=== PATIENT | male | born 2005 | race Caucasian/White ===

== ENCOUNTER 2023-01-23 22:49 | Inpatient (IN) | payer OTHER ==
[~2023-01-23 22:49] MED LIST: Iopamidol 370 76% 100 ML VIAL ONE
[2023-01-23] MEDS ORDERED: fentaNYL 50 mcg/mL 1 mL Vial ONE (22:54)
[2023-01-23 23:00] LABS: #Basophils 0.1 thou/uL (0.0-0.2); #Monocytes 0.8 thou/uL (0.11-0.59); #Neutrophils 11.4 thou/uL (1.40-6.50); %Basophils 0.5 % (0.0-1.0); %Eosinophils 0.2 % (0.0-10.0); %Lymphocytes 18.3 % (21.0-51.0); %Monocytes 5.2 % (0.0-10.0); Hematocrit 49.7 % (42.0-52.0); Hemoglobin 16.7 g/dL (14.0-18.0); Mean Corpuscular HGB CONC 33.6 g/dL (32.0-36.0); Mean Corpuscular Volume 86.3 fl (78.0-98.0); Mean Platelet Volume 9.6 fL (7.4-10.4); Platelet Count 353 10x3/uL (130-400); RBC Distribution Width 11.8 % (11.5-14.5); Red Blood Cell (RBC) Count 5.76 mill/uL (4.70-6.10); White Blood Cell (WBC) Count 16.1 10x3/uL (4.8-10.8)
[2023-01-23] MEDS ORDERED: Lidocaine 1% MPF 2 ML VIAL ONE (23:01)
[2023-01-23] MEDS ORDERED: Ketamine 50 MG/ML (10ML VIAL) ONE (23:03)
[2023-01-23] MEDS ORDERED: CEFAZOLIN 2 GM VIAL ONE (23:08)
[2023-01-23] MEDS ORDERED: Boostrix 0.5 ML (Tdap) VIAL (>/=7 yrs of age) ONE (23:08)
[2023-01-23 23:15] LABS: INR-International Normal Ratio 1.3; PTT 37.6 sec (22.9-36.1); Prothrombin Time 16.5 sec (12.0-14.7)
[2023-01-23] MEDS ORDERED: TETANUS, DIPHTHERIA TOX,ADULT (TDVAX) 0.5 ML VIAL IM ONE (23:22)
[2023-01-23] MEDS ORDERED: Ipratropium/Albuterol 3 ML NEB NEB PRN (23:22)
[2023-01-23] MEDS ORDERED: Cyclobenzaprine 10 MG TAB PO PRN (23:25)
[2023-01-23] MEDS ORDERED: Ketorolac Tromethamine 30 MG/ML VIAL ONE (23:39)
[2023-01-23 23:45] LABS: ALT (SGPT) 109 U/L (8-55); AST (SGOT) 184 U/L (5-34); Albumin 4.6 g/dL (3.5-5.0); Alkaline Phosphatase 67 U/L (40-110); Anion Gap 18 mmol/L (10-20); BUN (Urea Nitrogen) 15 mg/dL (8.9-20.6); Bilirubin, Total 0.3 mg/dL (0.2-1.2); Calc. Creatinine Clearance 0 mL/min (70-130); Calcium 9.3 mg/dL (7.8-10.44); Carbon Dioxide 19 mmol/L (22-29); Chloride 105 mmol/L (98-107); Estimated GFR 87; Globulin 2.9 g/dL (2.4-3.5); Glucose 98 mg/dL (70-105); Potassium 3.9 mmol/L (3.5-5.1); Protein, Total 7.5 g/dL (6.0-8.3); Sodium 138 mmol/L (136-145)
[2023-01-23 23:48] LABS: Troponin I 0.082 ng/mL (< 0.028)
[2023-01-23 23:57] LABS: Actual Bicarbonate (HCO3v) 20.7 mEq/L (22-28); Base Excess -4.6 mEq/L (-2.0 to +3.0); Calcium, Ionized (venous) 1.11 mmol/L (1.16-1.32); Chloride (VBG) 103 mmol/L (98-106); Hematocrit-VBG 50 % (42.0-52.0); Hemoglobin (Hb) 16.9 g/dL (13.2-17.3); Potassium (VBG) 3.73 mmol/L (3.70-5.30); Sodium 141.2 mmol/L (133-146); pH (venous) 7.338 (7.32-7.43)
[2023-01-24 00:27] LABS: Lipase 53 U/L (8-78)
[2023-01-24] MEDS ORDERED: Ondansetron PF 4 MG/2 ML Vial ONE (01:01)
[2023-01-24 01:54] LABS: Lactic Acid 2.9 mmol/L (0.5-2.2)
[2023-01-24] MEDS: Acetaminophen 500 MG TAB PO SCH ×5 (02:28→23:23)
[2023-01-24] MEDS: traMADol HCl 50 MG TAB PO SCH ×5 (02:28→23:22)
[2023-01-24] MEDS: Sodium Chloride 0.9% 1,000 ML IV SCH ×5 (02:45→23:24)
[2023-01-24 03:11] VITALS: BMI 27.2
[2023-01-24] MEDS: Morphine 2 MG/ML VIAL SLOW IVP PRN ×4 (03:50→23:34)
[2023-01-24 05:56] LABS: #Monocytes 1.3 thou/uL (0.11-0.59); #Neutrophils 14.6 thou/uL (1.40-6.50); %Basophils 0.1 % (0.0-1.0); %Lymphocytes 3.1 % (28.0-48.0); %Monocytes 7.9 % (0.0-4.0); %Neutrophils 88.4 % (31.0-61.0); Hemoglobin 14.5 g/dL (14.0-18.0); Mean Corpuscular HGB CONC 33.7 g/dL (32.0-36.0); Mean Corpuscular Hemoglobin 29.6 pg (25.0-35.0); Mean Corpuscular Volume 87.8 fl (78.0-98.0); Platelet Count 269 10x3/uL (130-400); RBC Distribution Width 11.9 % (11.5-14.5); White Blood Cell (WBC) Count 16.5 10x3/uL (4.8-10.8)
[2023-01-24 06:08] LABS: INR-International Normal Ratio 1.2; PTT 28.1 sec (22.9-36.1); Prothrombin Time 15.8 sec (12.0-14.7)
[2023-01-24 06:30] LABS: Anion Gap 16 mmol/L (10-20); BUN (Urea Nitrogen) 15 mg/dL (8.9-20.6); Calc. Creatinine Clearance 142 mL/min (70-130); Calcium 8.8 mg/dL (7.8-10.44); Carbon Dioxide 20 mmol/L (22-29); Chloride 107 mmol/L (98-107); Estimated GFR 105; Glucose 133 mg/dL (70-105); Potassium 4.3 mmol/L (3.5-5.1); Sodium 139 mmol/L (136-145)
[2023-01-24 06:57] LABS: Amphetamine Not Detected (NotDetected); Barbiturates Screen Not Detected (NotDetected); Benzodiazepine Screen Not Detected (NotDetected); Cocaine Metabolite Screen Not Detected (NotDetected); Methadone Not Detected (NotDetected); Methamphetamine Not Detected (NotDetected); Opiate Screen Detected (NotDetected); Oxycodone Screen Not Detected (NotDetected); Phencyclidine (PCP) Not Detected (NotDetected); THC/Cannabinoid Screen Detected (NotDetected); Tricyclic Screen Not Detected (NotDetected)
[2023-01-24] MEDS ORDERED: CEFAZOLIN 2 GM in Sodium Chloride 0.9% 100 ML IVPB SCH (08:30)
[2023-01-24] MEDS: Polyethylene Glycol 3350 17 GM Packet PO SCH (09:50)
[2023-01-24] MEDS: Senokot S 8.6-50 MG TAB PO SCH ×2 (09:50→20:07)
[2023-01-24] MEDS: Famotidine/PF 20 mg/2ml Vial SLOW IVP SCH ×2 (09:50→20:07)
[2023-01-24 10:47] LABS: Bacteria/HPF None Seen HPF (None Seen); Bilirubin Negative (Negative); Blood, Urine 3+ (Negative); CAUTI Indications for Culture Acute Hematuria; Clarity Clear (Clear); Glucose, Urine (Dipstick) 30 mg/dL (Negative); Ketone, Urine Negative (Negative); Leukocyte Negative Leu/uL (Negative); Nitrite Negative (Negative); Protein, Urine (Dipstick) 20 mg/dL (Neg-Trace); RBC/HPF Greater than 50 HPF (0-3); Specific Gravity, Urine 1.048 (1.002-1.036); Squamous Epithelial 0-3 HPF (0-3); Urobilinogen Normal mg/dL (Less than 2); WBC/HPF 0-3 HPF (0-3); pH, Urine 5.5 (5.0-9.0)
[2023-01-24 10:49] LABS: Urine Culture Reflex No No
[2023-01-24] MEDS: traMADol HCl 50 MG TAB PO PRN (15:51)
[2023-01-24] MEDS: Ondansetron PF 4 MG/2 ML Vial IVP PRN (15:52)
[2023-01-24] MEDS: Pregabalin 50 MG CAP PO SCH (20:07)
[2023-01-25] MEDS: traMADol HCl 50 MG TAB PO SCH ×4 (04:32→23:15)
[2023-01-25] MEDS: Morphine 2 MG/ML VIAL SLOW IVP PRN ×3 (04:33→22:57)
[2023-01-25] MEDS: Acetaminophen 500 MG TAB PO SCH ×4 (04:33→22:49)
[2023-01-25] MEDS: Sodium Chloride 0.9% 1,000 ML IV SCH ×2 (06:28→15:29)
[2023-01-25] MEDS ORDERED: fentaNYL 50 mcg/mL 1 mL Vial ONE ×5 (06:56→11:16)
[2023-01-25] MEDS ORDERED: HYDROmorphone 2 MG/ML VIAL ONE (06:56)
[2023-01-25] MEDS ORDERED: Midazolam HCl 2 mg/2 ml Vial ONE (06:56)
[2023-01-25 06:59] LABS: #Basophils 0.1 thou/uL (0.0-0.2); #Eosinphils 0.3 thou/uL (0.0-0.7); #Monocytes 0.7 thou/uL (0.11-0.59); #Neutrophils 6.9 thou/uL (1.40-6.50); %Basophils 0.7 % (0.0-1.0); %Eosinophils 2.9 % (0.0-10.0); %Monocytes 8.1 % (0.0-4.0); %Neutrophils 77.1 % (31.0-61.0); Mean Corpuscular HGB CONC 33.8 g/dL (32.0-36.0); Mean Corpuscular Hemoglobin 29.2 pg (25.0-35.0); Mean Corpuscular Volume 86.4 fl (78.0-98.0); Mean Platelet Volume 9.4 fL (7.4-10.4); Platelet Count 148 10x3/uL (130-400)
[2023-01-25 07:26] LABS: Anion Gap 10 mmol/L (10-20); BUN (Urea Nitrogen) 11 mg/dL (8.9-20.6); CK (CPK) 2529 U/L (30-200); Calc. Creatinine Clearance 164 mL/min (70-130); Calcium 8.3 mg/dL (7.8-10.44); Carbon Dioxide 23 mmol/L (22-29); Chloride 108 mmol/L (98-107); Estimated GFR 125; Glucose 100 mg/dL (70-105); Magnesium 1.5 mg/dL (1.7-2.2); Phosphorus 2.5 mg/dL (2.3-4.7); Potassium 3.8 mmol/L (3.5-5.1); Sodium 137 mmol/L (136-145)
[2023-01-25 07:40] LABS: Hematocrit 31.1 % (42.0-52.0); Hemoglobin 10.5 g/dL (14.0-18.0)
[2023-01-25] MEDS ORDERED: CEFAZOLIN 2 GM VIAL ONE (07:41)
[2023-01-25] MEDS ORDERED: Sodium Chloride 0.9% 100 ML ONE (07:41)
[2023-01-25] MEDS ORDERED: Rocuronium Bromide 10 MG/ML (10ML VIAL) ONE (08:05)
[2023-01-25] MEDS ORDERED: Dexamethasone 20 MG/5 ML VIAL ONE (08:05)
[2023-01-25] MEDS ORDERED: PROPOFOL 200 MG/20 ML VIAL ONE (08:05)
[2023-01-25] MEDS ORDERED: Lidocaine 1% PF 5 ML VIAL ONE (08:05)
[2023-01-25] MEDS ORDERED: Ondansetron PF 4 MG/2 ML Vial ONE (08:05)
[2023-01-25] MEDS ORDERED: Dexmedetomidine 200 MCG/2 ML VIAL ONE (08:07)
[2023-01-25] MEDS ORDERED: Famotidine/PF 20 mg/2ml Vial ONE (08:07)
[2023-01-25] MEDS ORDERED: SUGAMMADEX SODIUM 200 MG/2 ML VIAL ONE (08:07)
[2023-01-25] MEDS ORDERED: Albumin 5% 500 ML ONE (08:07)
[2023-01-25] MEDS: Senokot S 8.6-50 MG TAB PO SCH ×2 (10:27→20:38)
[2023-01-25] MEDS: Polyethylene Glycol 3350 17 GM Packet PO SCH (10:27)
[2023-01-25] MEDS: Pregabalin 50 MG CAP PO SCH ×2 (10:27→20:38)
[2023-01-25] MEDS: Famotidine/PF 20 mg/2ml Vial SLOW IVP SCH ×2 (10:27→20:39)
[2023-01-25] MEDS ORDERED: Ondansetron HCl/PF 4 MG/2 ML Vial IVP PRN (10:36)
[2023-01-25] MEDS ORDERED: HYDROmorphone 2 MG/ML VIAL SLOW IVP PRN (10:36)
[2023-01-25] MEDS ORDERED: Ketorolac Tromethamine 30 MG/ML VIAL IVP PRN (10:36)
[2023-01-25] MEDS ORDERED: Promethazine HCl 25 MG/ML VIAL IM PRN (10:36)
[2023-01-25] MEDS ORDERED: Ketorolac Tromethamine 30 MG/ML VIAL ONE (10:40)
[2023-01-25] MEDS ORDERED: Magnesium Sulfate In Water 4 GM in Premix Bag 1 BAG IVPB SCH (13:00)
[2023-01-25] MEDS: CEFAZOLIN 2 GM in Sodium Chloride 0.9% 100 ML IVPB SCH ×2 (13:36→22:49)
[2023-01-25] MEDS: Ondansetron PF 4 MG/2 ML Vial IVP PRN (13:37)
[2023-01-25] MEDS: Cyclobenzaprine 10 MG TAB PO PRN ×2 (14:12→20:38)
[2023-01-25] MEDS: Ferrous Sulfate 325 MG TAB PO SCH (17:39)
[2023-01-25] MEDS: Ascorbic Acid 500 mg Chewable Tablet PO SCH (20:39)
[2023-01-25] MEDS: traMADol HCl 50 MG TAB PO PRN (20:39)
[2023-01-26] MEDS: traMADol HCl 50 MG TAB PO PRN ×2 (03:06→09:05)
[2023-01-26] MEDS: Morphine 2 MG/ML VIAL SLOW IVP PRN ×4 (03:06→15:17)
[2023-01-26] MEDS: Acetaminophen 500 MG TAB PO SCH ×4 (05:14→23:03)
[2023-01-26] MEDS: traMADol HCl 50 MG TAB PO SCH ×4 (05:15→23:04)
[2023-01-26 07:01] LABS: #Eosinphils 0.1 thou/uL (0.0-0.7); #Neutrophils 10.4 thou/uL (1.40-6.50); %Basophils 0.2 % (0.0-1.0); %Eosinophils 0.6 % (0.0-10.0); %Lymphocytes 6.3 % (28.0-48.0); %Monocytes 8.1 % (0.0-4.0); %Neutrophils 84.2 % (31.0-61.0); Hematocrit 27.6 % (42.0-52.0); Hemoglobin 9.4 g/dL (14.0-18.0); Mean Corpuscular HGB CONC 34.1 g/dL (32.0-36.0); Mean Corpuscular Hemoglobin 29.7 pg (25.0-35.0); Mean Corpuscular Volume 87.3 fl (78.0-98.0); Mean Platelet Volume 10.3 fL (7.4-10.4); Platelet Count 179 10x3/uL (130-400); RBC Distribution Width 11.9 % (11.5-14.5); Red Blood Cell (RBC) Count 3.16 mill/uL (4.00-5.20); White Blood Cell (WBC) Count 12.4 10x3/uL (4.8-10.8)
[2023-01-26] MEDS: CEFAZOLIN 2 GM in Sodium Chloride 0.9% 100 ML IVPB SCH (09:01)
[2023-01-26] MEDS: Pregabalin 50 MG CAP PO SCH (09:03)
[2023-01-26] MEDS: Ferrous Sulfate 325 MG TAB PO SCH ×2 (09:03→17:52)
[2023-01-26] MEDS: Ascorbic Acid 500 mg Chewable Tablet PO SCH ×2 (09:03→21:57)
[2023-01-26] MEDS: Famotidine/PF 20 mg/2ml Vial SLOW IVP SCH ×2 (09:03→22:02)
[2023-01-26] MEDS: Polyethylene Glycol 3350 17 GM Packet PO SCH (09:05)
[2023-01-26] MEDS: Senokot S 8.6-50 MG TAB PO SCH ×2 (09:05→21:58)
[2023-01-26] MEDS: Cyclobenzaprine 10 MG TAB PO PRN (15:17)
[2023-01-26] MEDS: Pregabalin 75 MG CAP PO SCH (21:58)
[2023-01-27] MEDS: traMADol HCl 50 MG TAB PO SCH ×4 (04:35→22:40)
[2023-01-27] MEDS: Acetaminophen 500 MG TAB PO SCH ×4 (04:36→22:40)
[2023-01-27] MEDS: Morphine 2 MG/ML VIAL SLOW IVP PRN ×2 (05:24→09:01)
[2023-01-27 06:26] LABS: #Basophils 0.1 thou/uL (0.0-0.2); #Eosinphils 0.4 thou/uL (0.0-0.7); #Monocytes 0.7 thou/uL (0.11-0.59); #Neutrophils 5.4 thou/uL (1.40-6.50); %Basophils 0.6 % (0.0-1.0); %Eosinophils 4.7 % (0.0-10.0); %Lymphocytes 20.4 % (28.0-48.0); %Monocytes 8.6 % (0.0-4.0); %Neutrophils 65.1 % (31.0-61.0); Hematocrit 24.9 % (42.0-52.0); Hemoglobin 8.3 g/dL (14.0-18.0); Mean Corpuscular HGB CONC 33.3 g/dL (32.0-36.0); Mean Corpuscular Hemoglobin 29.3 pg (25.0-35.0); Mean Platelet Volume 9.8 fL (7.4-10.4); Platelet Count 177 10x3/uL (130-400); Red Blood Cell (RBC) Count 2.83 mill/uL (4.00-5.20); White Blood Cell (WBC) Count 8.3 10x3/uL (4.8-10.8)
[2023-01-27 06:55] LABS: Anion Gap 13 mmol/L (10-20); BUN (Urea Nitrogen) 13 mg/dL (8.9-20.6); CK (CPK) 1576 U/L (30-200); Calc. Creatinine Clearance 168 mL/min (70-130); Calcium 8.7 mg/dL (7.8-10.44); Carbon Dioxide 27 mmol/L (22-29); Chloride 104 mmol/L (98-107); Estimated GFR 126; Glucose 97 mg/dL (70-105); Potassium 3.5 mmol/L (3.5-5.1); Sodium 140 mmol/L (136-145)
[2023-01-27] MEDS: Ferrous Sulfate 325 MG TAB PO SCH ×2 (08:52→17:34)
[2023-01-27] MEDS: Pregabalin 75 MG CAP PO SCH ×2 (08:52→20:52)
[2023-01-27] MEDS: Senokot S 8.6-50 MG TAB PO SCH ×2 (08:53→20:51)
[2023-01-27] MEDS: Polyethylene Glycol 3350 17 GM Packet PO SCH (08:54)
[2023-01-27] MEDS: Ascorbic Acid 500 mg Chewable Tablet PO SCH ×2 (08:54→20:51)
[2023-01-27] MEDS: Famotidine/PF 20 mg/2ml Vial SLOW IVP SCH (08:54)
[2023-01-27] MEDS: Cyclobenzaprine 10 MG TAB PO PRN (09:01)
[2023-01-27 09:44] LABS: Magnesium 1.7 mg/dL (1.7-2.2)
[2023-01-27] MEDS: Ondansetron PF 4 MG/2 ML Vial IVP PRN (17:34)
[2023-01-28] MEDS: Acetaminophen 500 MG TAB PO SCH ×4 (05:41→23:28)
[2023-01-28] MEDS: traMADol HCl 50 MG TAB PO SCH ×4 (05:41→20:51)
[2023-01-28] MEDS: Ascorbic Acid 500 mg Chewable Tablet PO SCH ×2 (08:56→20:50)
[2023-01-28] MEDS: Ferrous Sulfate 325 MG TAB PO SCH ×2 (08:58→17:17)
[2023-01-28] MEDS: Pregabalin 75 MG CAP PO SCH ×2 (09:00→20:50)
[2023-01-28] MEDS: Senokot S 8.6-50 MG TAB PO SCH ×2 (09:00→20:50)
[2023-01-28] MEDS: Polyethylene Glycol 3350 17 GM Packet PO SCH (09:08)
[2023-01-28] MEDS: Cyclobenzaprine 10 MG TAB PO PRN (17:17)
[2023-01-29] MEDS: Melatonin 3 MG TAB PO PRN ×2 (01:49→22:28)
[2023-01-29] MEDS: Cyclobenzaprine 10 MG TAB PO PRN ×2 (01:49→20:46)
[2023-01-29] MEDS: Acetaminophen 500 MG TAB PO SCH ×3 (04:23→17:42)
[2023-01-29] MEDS: traMADol HCl 50 MG TAB PO SCH ×4 (04:23→22:28)
[2023-01-29] MEDS: Pregabalin 75 MG CAP PO SCH ×2 (08:59→20:47)
[2023-01-29] MEDS: Ascorbic Acid 500 mg Chewable Tablet PO SCH ×2 (08:59→20:47)
[2023-01-29] MEDS: Ferrous Sulfate 325 MG TAB PO SCH ×2 (08:59→17:43)
[2023-01-29] MEDS: Polyethylene Glycol 3350 17 GM Packet PO SCH (08:59)
[2023-01-29] MEDS: Senokot S 8.6-50 MG TAB PO SCH ×2 (09:05→20:45)
[2023-01-29] MEDS ORDERED: Bacitracin Zinc Ointment 30 gm TUBE TOP PRN (12:03)
[2023-01-29] MEDS ORDERED: Ketorolac Tromethamine 30 MG/ML VIAL IVP SCH (19:00)
[2023-01-29] MEDS ORDERED: Gabapentin 300 MG CAP PO SCH (19:00)
[2023-01-30] MEDS: Acetaminophen 500 MG TAB PO SCH ×5 (00:28→23:05)
[2023-01-30] MEDS: Ketorolac Tromethamine 30 MG/ML VIAL IVP SCH ×5 (00:28→23:05)
[2023-01-30] MEDS: traMADol HCl 50 MG TAB PO SCH ×4 (05:14→23:04)
[2023-01-30 05:46] LABS: #Eosinphils 0.2 thou/uL (0.0-0.7); #Neutrophils 5.9 thou/uL (1.40-6.50); %Basophils 0.4 % (0.0-1.0); %Eosinophils 2.7 % (0.0-10.0); %Lymphocytes 12.8 % (28.0-48.0); %Monocytes 12.6 % (0.0-4.0); %Neutrophils 70.7 % (31.0-61.0); Hematocrit 29.7 % (42.0-52.0); Hemoglobin 9.9 g/dL (14.0-18.0); Mean Corpuscular HGB CONC 33.3 g/dL (32.0-36.0); Mean Corpuscular Hemoglobin 28.9 pg (25.0-35.0); Mean Corpuscular Volume 86.8 fl (78.0-98.0); Mean Platelet Volume 9.3 fL (7.4-10.4); Platelet Count 273 10x3/uL (130-400); RBC Distribution Width 12.2 % (11.5-14.5); Red Blood Cell (RBC) Count 3.42 mill/uL (4.00-5.20); White Blood Cell (WBC) Count 8.3 10x3/uL (4.8-10.8)
[2023-01-30 06:12] LABS: Anion Gap 16 mmol/L (10-20); BUN (Urea Nitrogen) 14 mg/dL (8.9-20.6); Calc. Creatinine Clearance 178 mL/min (70-130); Calcium 9.5 mg/dL (7.8-10.44); Carbon Dioxide 24 mmol/L (22-29); Chloride 99 mmol/L (98-107); Estimated GFR 129; Glucose 103 mg/dL (70-105); Potassium 4.2 mmol/L (3.5-5.1); Sodium 135 mmol/L (136-145)
[2023-01-30] MEDS: Pregabalin 75 MG CAP PO SCH ×2 (11:47→21:01)
[2023-01-30] MEDS: Ascorbic Acid 500 mg Chewable Tablet PO SCH ×2 (11:47→21:01)
[2023-01-30] MEDS: Ferrous Sulfate 325 MG TAB PO SCH ×2 (11:48→16:25)
[2023-01-30] MEDS: Polyethylene Glycol 3350 17 GM Packet PO SCH (14:03)
[2023-01-30] MEDS: Senokot S 8.6-50 MG TAB PO SCH ×2 (14:03→21:02)
[2023-01-30] MEDS: Melatonin 3 MG TAB PO PRN (23:06)
[2023-01-31] MEDS: Acetaminophen 500 MG TAB PO SCH ×2 (05:15→13:10)
[2023-01-31] MEDS: traMADol HCl 50 MG TAB PO SCH ×3 (05:16→15:17)
[2023-01-31] MEDS: Ketorolac Tromethamine 30 MG/ML VIAL IVP SCH ×2 (05:24→11:38)
[2023-01-31] MEDS: Ascorbic Acid 500 mg Chewable Tablet PO SCH (09:55)
[2023-01-31] MEDS: Ferrous Sulfate 325 MG TAB PO SCH (09:55)
[2023-01-31] MEDS: Pregabalin 75 MG CAP PO SCH (09:55)
[2023-01-31] MEDS: Senokot S 8.6-50 MG TAB PO SCH (09:55)
[2023-01-31] MEDS: Polyethylene Glycol 3350 17 GM Packet PO SCH (09:56)
[2023-01-31 12:42] VITALS: BP 128/78; TEMP 97.9
== END 2023-01-31 17:09 | DRG 958 ==
LOC: EDBD 22:49 → ERS 22:49 → SJJU 23:25
PROVIDERS: ADMIT Surgery; ATTEND Surgery
PROC: 0W9930Z Drainage of Right Pleural Cavity with Drainage Device, Percutaneous Approach (ICD-10-PCS; principal; 2023-01-23)
PROC: 0QS204Z Reposition Right Pelvic Bone with Internal Fixation Device, Open Approach (ICD-10-PCS; 2023-01-25)
PROC: 30233J1 Transfusion of Nonautologous Serum Albumin into Peripheral Vein, Percutaneous Approach (ICD-10-PCS; 2023-01-25)
DX: S32.810A Multiple fractures of pelvis with stable disruption of pelvic ring, initial encounter for closed fracture (principal); S27.2XXA Traumatic hemopneumothorax, initial encounter; D62 Acute posthemorrhagic anemia; S36.031A Moderate laceration of spleen, initial encounter; S32.018A Other fracture of first lumbar vertebra, initial encounter for closed fracture; S32.028A Other fracture of second lumbar vertebra, initial encounter for closed fracture; S22.088A Other fracture of T11-T12 vertebra, initial encounter for closed fracture; S32.10XA Unspecified fracture of sacrum, initial encounter for closed fracture; S27.0XXA Traumatic pneumothorax, initial encounter; S30.1XXA Contusion of abdominal wall, initial encounter; T79.6XXA Traumatic ischemia of muscle, initial encounter; M25.562 Pain in left knee; G89.11 Acute pain due to trauma; V29.99XA Rider (driver) (passenger) of other motorcycle injured in unspecified traffic accident, initial encounter
CPT/HCPCS: 32551; 36415; 36416; 70450; 71045; 71260; 72125; 72170; 72220; 74177; 80048; 80053; 80306; 80307; 81001; 82550; 82805; 83605; 83690; 83735; 84100; 84484; 85025; 85610; 85730; 86850; 86900; 86901; 90471; 90715; 93005; 94760; 96365; 96375; C1713; C1769; G0390; J1100; J1170; J1650; J1885; J2250; J2272; J2405; J2704; J3010; J3475; J3490; J7050; P9045; Q9967; S0028